=== PATIENT | male | born 1950 | race Caucasian/White ===

== ENCOUNTER → 2021-09-11 | Outpatient (CLI) | payer MEDICARE ==
[2021-09-11 15:23] LABS: HEMATOCRIT 40 % (40-54); HEMOGLOBIN 14.1 g/dL (13.3-17.7); MEAN CORPUSCULAR HEMOGLOBIN 28 pg (25-34); MEAN CORPUSCULAR HGB CONC 35 g/dL (32-36); MEAN CORPUSCULAR VOLUME 81 fL (80-99); MEAN PLATELET VOLUME 10.7 fL (9.0-12.2); PLATELET COUNT 207 10^3/uL (130-400); WHITE BLOOD COUNT 19.9 10^3/uL (4.3-11.0)
[2021-09-11 15:28] LABS: ALBUMIN 3.9 GM/DL (3.2-4.5)
[2021-09-11 15:30] LABS: CALCIUM 9.3 MG/DL (8.5-10.1)
[2021-09-11 15:31] LABS: TOTAL PROTEIN 7.4 GM/DL (6.4-8.2)
[2021-09-11 15:33] LABS: BILIRUBIN,TOTAL 2.1 MG/DL (0.1-1.0)
[2021-09-11 15:35] LABS: CREATININE SERUM 1.24 MG/DL (0.60-1.30)
--- NOTE | 2021-09-11 15:42 | Diagnostic Imaging Report ---
INDICATION: Right-sided abdominal pain. EXAMINATION: KUB at 3:23 PM. FINDINGS: The lung bases are clear. The bowel gas pattern is normal. There are no pathologic masses or calcifications. IMPRESSION: No acute abnormality is seen in the abdomen. Dictated by: Dictated on workstation # [id number]
== END ==
LOC: RAD 14:53
PROVIDERS: ATTEND Nurse Practitioner Family
DX: K59.00 Constipation, unspecified (principal); R11.2 Nausea with vomiting, unspecified
CPT/HCPCS: 36415; 74018; 80053; 83690; 85027; 86141

== ENCOUNTER → 2021-09-15 | Outpatient (CLI) | payer MEDICARE ==
--- NOTE | 2021-09-15 16:30 | Diagnostic Imaging Report ---
PROCEDURE: CT abdomen and pelvis without contrast. TECHNIQUE: Multiple contiguous axial images were obtained through the abdomen and pelvis without the use of intravenous contrast. Auto Exposure Controls were utilized during the CT exam to meet ALARA standards for radiation dose reduction. INDICATION: Right upper quadrant pain for 2 weeks. COMPARISON: No prior studies are available for comparison. The lung bases are clear. Liver is unremarkable. There appears to be significant inflammation surrounding the gallbladder. No definite gallstones are identified. There is no biliary ductal dilatation. The pancreas and spleen are unremarkable. No adrenal mass is detected. Right kidney is unremarkable. Left kidney contains a large cyst measuring approximately 10 cm. Aorta is heavily calcified. There is aneurysmal dilatation of the infrarenal abdominal aorta measuring 4.7 cm AP diameter. This terminates above the bifurcation. Bowel loops are nondilated. There is no obstruction. No free fluid or fluid collection is seen. There is a fat-containing umbilical hernia. Bladder and prostate are unremarkable. IMPRESSION: 1. There is significant inflammatory stranding surrounding the gallbladder suggestive of acute cholecystitis. Correlation with gallbladder ultrasound is recommended. 2. Left renal cysts. 3. Infrarenal abdominal aortic aneurysm. 4. Fat-containing umbilical hernia. Dictated by: Dictated on workstation # [id number]
== END ==
LOC: RAD 12:15
PROVIDERS: ATTEND Nurse Practitioner Family
DX: I71.4 Abdominal aortic aneurysm, without rupture (principal); N28.1 Cyst of kidney, acquired; K42.9 Umbilical hernia without obstruction or gangrene
CPT/HCPCS: 74176

== ENCOUNTER → 2021-10-07 | Outpatient (CLI) | payer MEDICARE ==
[~2021-10-07] VITALS: Ht 182.9 cm; Wt 111.0 kg
[~2021-10-07] MED LIST: ASPI81TA16 PO; CHOL10008 PO; CIPR500T5 PO; FLUO40CA12 PO; HYDR-3817 PO; L. R1CAP4 PO; LOPE2CAP14 PO; LORA-1025 PO; LOSA50TA63 PO; METR-145 PO
== END | disposition home or self-care (01) ==
LOC: PREOP 05:30
PROVIDERS: ATTEND Surgery
DX: Z01.818 Encounter for other preprocedural examination (principal)

== ENCOUNTER 2021-10-09 08:29 | Day surgery (SDC) | payer MEDICARE ==
[2021-10-09] VITALS (11 sets, daily range): BP systolic 100–134; BP diastolic 62–89
[~2021-10-09] VITALS: Ht 182.9 cm; Wt 111.0 kg
[~2021-10-09 08:29] MED LIST changes: -HYDR-3817 PO
[2021-10-09] MEDS: LACTATED RINGERS 1,000 ML IV PRN ×2 (08:55→11:09)
[2021-10-09] MEDS ORDERED: ceFAZolin 2 GM IV Premixed 50 ML IV ONE (09:00)
[2021-10-09] MEDS ORDERED: CLINDAMYCIN 600 MG/50 ML IVPB 50 ML IV ONE ×2 (09:07→10:15)
[2021-10-09] MEDS ORDERED: ONDANSETRON 4 MG/2 ML (SDV) Z0FRAN ONE ×2 (09:18→09:45)
--- NOTE | 2021-10-09 09:18 | Progress Note-Pre Operative ---
Pre-Operative Progress Note H&P Reviewed The H&P was reviewed, patient examined and no changes noted. Date Seen by Provider: October 09, 2021 Time Seen by Provider: 09:15 Date H&P Reviewed: October 09, 2021 Time H&P Reviewed: 09:10 Pre-Operative Diagnosis: Acute cholecystitis, Umbilical hernia HERNAN MANDEL APRN October 09, 2021 09:18
[2021-10-09] MEDS ORDERED: HYDR-3817 PO (09:19)
--- NOTE | 2021-10-09 09:20 | Discharge Inst-Surgical ---
D/C Lap Instructions-KIDO Reconcile Patient Problems Problems Reviewed?: Yes New, Converted, or Re-Newed RX: RX on Chart Follow Up Appt in 2 weeks Activity as tolerated No driving for 24 hours No driving while on pain medications Incentive Spirometry use every 2 hours while awake Regular Diet Symptoms to Report: Fever over 101 degree F, Nausea/Vomiting Infection Signs and Symptoms to report: Increased redness, Foul odor of wound, Increased drainage Bathing instructions: May shower Operative Area Clean/Dry; Keep incision clean/dry If any problems/questions: Contact your physician or go to Emergency Room HERNAN MANDEL APRN October 09, 2021 09:20
[2021-10-09] MEDS ORDERED: HYDROcodone/APAP 5 MG/325 MG (LORTAB) TAB PO ONE (09:30)
[2021-10-09] MEDS ORDERED: ACETAMINOPHEN 325 MG TABLET PO PRN (09:30)
[2021-10-09] MEDS ORDERED: ONDANSETRON 4 MG/2 ML (SDV) Z0FRAN IV ONE (09:30)
[2021-10-09] MEDS ORDERED: morphine INJ 10 MG/ML 1ML (SYR OR VIAL) IVP PRN (09:30)
[2021-10-09] MEDS ORDERED: ONDANSETRON 4 MG/2 ML (SDV) Z0FRAN IVP PRN ×2 (09:30→12:45)
[2021-10-09] MEDS ORDERED: fentaNYL INJ 100 MCG/2 ML AMP ONE (09:45)
[2021-10-09] MEDS ORDERED: proPOfol 200 MG/20 ML (DIPRIVAN) VIAL IV ONE (09:45)
[2021-10-09] MEDS ORDERED: SEVOFLURANE (ULTANE) 15 ML INHAL SOLN ONE ×2 (09:45→12:07)
[2021-10-09] MEDS ORDERED: LIDOCAINE PF 2% 5 ML (XYLOCAINE) VIAL ONE (09:45)
[2021-10-09] MEDS ORDERED: MIDAZOLAM 2 MG/2 ML (VERSED) VIAL ONE (09:46)
[2021-10-09] MEDS ORDERED: ROCURONIUM 50 MG/5 ML (ZEMURON) VIAL IV ONE (09:48)
[2021-10-09] MEDS ORDERED: LIDOCAINE/EPI 1%-1:200,000 (XYLOCAINE) 30 ML VIAL ONE (10:03)
[2021-10-09] MEDS ORDERED: PHENYLEPHRINE 100 MCG/ML 10 ML (ANESTHESIA) SYR ONE (10:56)
[2021-10-09] MEDS ORDERED: GLYCOPYRROLATE 0.2 MG/ML (ROBINUL) 2 ML VIAL ONE (12:02)
[2021-10-09] MEDS ORDERED: NEOSTIGMINE 3 MG/3 ML VIAL ONE (12:06)
[2021-10-09] MEDS ORDERED: KETOROLAC 30 MG/ML VIAL ONE (12:20)
--- NOTE | 2021-10-09 12:23 | Progress Note-Post Operative ---
Post-Operative Progess Note Surgeon (s)/Sweatband Flanger (s) Surgeon ROBERT GUARDADO MD Sweatband Flanger: maury jane SKI LIFT MECHANIC Pre-Operative Diagnosis Acute cholecystitis, Umbilical hernia Post-Operative Diagnosis same Procedure & Operative Findings Date of Procedure 10/09/21 Procedure Performed/Findings laparoscopic cholecystectomy. primary umbilical hernia repair. Anesthesia Type GET Estimated Blood Loss Estimated blood loss (mL): minimal Specimens/Packing Specimens Removed gallbladder ROBERT GUARDADO MD October 09, 2021 12:23
[2021-10-09] MEDS ORDERED: HYDROmorphone 2 MG/ML VIAL (DILAUDID) IV ONE (12:45)
[2021-10-09] MEDS ORDERED: HYDROcodone/APAP 5 MG/325 MG (LORTAB) TAB ONE (13:31)
--- NOTE | 2021-10-09 17:25 | OPERATIVE REPORT ---
DATE OF SERVICE: 10/09/2021 ATTENDING PRIMARY CARE PHYSICIAN: Emma Damon APRN. PREOPERATIVE DIAGNOSES: Acute calculous cholecystitis and reducible umbilical hernia. POSTOPERATIVE DIAGNOSES: Acute calculous cholecystitis and reducible umbilical hernia. PROCEDURES PERFORMED: Laparoscopic cholecystectomy and open primary umbilical hernia repair. SURGEON: Marina Guardado MD. PACK PULLER: Emiliano Guerrero APRN. ANESTHESIA: General endotracheal. ESTIMATED BLOOD LOSS: Minimal. FINDINGS: Inflamed gallbladder, gallstones, and small reducible umbilical hernia. DISPOSITION: The patient tolerated the procedure well. INDICATIONS FOR PROCEDURE: The patient is a 71-year-old male, who developed abdominal pain, nausea and vomiting as well as diarrhea and was initially treated for diverticulitis. He then underwent a CT scan and was found to have gallbladder wall inflammation as well as pericholecystic fluid consistent with an acute cholecystitis. He was found to be COVID positive; however, asymptomatic. He continued to be symptomatic; however, with significant diarrhea requiring IV fluids as well as a significant weight loss. A CT scan also did show an umbilical hernia. DESCRIPTION OF PROCEDURE: The patient was brought to the operating room and laid supine on the table. After adequate IV pain and sedative medications and general endotracheal intubation, the abdomen was prepped and draped in a standard surgical fashion. A 0.5% Marcaine with epinephrine was used to anesthetize the overlying skin at the left upper abdominal quadrant and a transverse skin incision was made using a 15 blade. A 0 silk suture was applied to the medial aspect incision for retraction and Veress needle inserted with a low opening pressure of 0 mmHg. The abdomen was then insufflated to 15 mmHg pressure. The Veress needle was removed and a 5 mm XL trocar placed followed by a 5 mm 45-degree angle laparoscope visualizing the peritoneal cavity. A four-quadrant abdominal exploration was performed. The gallbladder was not visualized and covered with omentum. Under direct visualization, there was also an umbilical hernia identified with preperitoneal fat within the hernia sac, which was reducible. Through the hernia sac, a 10 mm port was placed after the skin and peritoneal lining were anesthetized using 0.5% Marcaine with epinephrine and a transverse skin incision made using 15 blade. In a similar manner, a right upper abdominal quadrant 5 mm port was placed. The patient was then placed in a reverse Trendelenburg position as well as plane right side up, left side down. The fundus of the gallbladder was not identified and the omental adhesions were taken down using blunt dissection as well as electrocautery on hook instrument. The gallbladder was then retracted anteriorly and superiorly and the remainder of the omentum was taken down using blunt dissection as well as electrocautery on hook instrument with visualization of good hemostasis. The hepatoduodenal ligament was then bluntly dissected using a [place] dissector as well as the hook instrument. The entire critical view of safety was identified including the triangle of Calot as well as the cystic duct and artery as the only two structures going to the gallbladder as well as the cystic plate behind the proximal gallbladder. A timeout was then taken and the cystic duct and artery were then clipped proximally, distally and cut with EndoShears. The gallbladder was then dissected off the liver bed using cautery on hook instrument with visualization of good hemostasis as well as no leaking ducts of Luschka. Surgicel was placed on the liver bed as well. The gallbladder was removed through the 10 mm port site using an EndoCatch bag. The abdomen was desufflated and the skin incision was extended a few millimeters laterally and the hernia sac excised using electrocautery. The defect was only approximately 1.5 cm in size and was closed primarily in a transverse fashion using interrupted 0 Prolene sutures with visualization of good hemostasis. The subcutaneous tissue was then reapproximated using 3-0 Vicryl interrupted sutures. Skin was closed using 4-0 Monocryl running subcuticular suture. Wounds were then cleaned and covered with Dermabond. The tonsil sponges were then placed into the hernia site followed by 4 x 4 gauze followed by a large Op-Site followed by an abdominal binder. The patient tolerated the procedure well. We will start IV normal pain medication as well as a clear liquid diet. Once he is tolerating clears, has good pain control with oral pain medications, and ambulating well, we will discharge him home. He will be instructed to do no heavy lifting or exertion for the next two weeks. Job ID: [id number] DocumentID: [id number] Dictated Date: 10/09/2021 12:30:26 Resource Recovery Engineer Date: 10/09/2021 17:24:03 Dictated By: MARINA GUARDADO MD
== END 2021-10-09 14:35 ==
LOC: SDC 08:29
PROVIDERS: ATTEND Surgery
DX: K80.12 Calculus of gallbladder with acute and chronic cholecystitis without obstruction (principal); K42.9 Umbilical hernia without obstruction or gangrene; K66.0 Peritoneal adhesions (postprocedural) (postinfection); E66.9 Obesity, unspecified; Z68.33 Body mass index [BMI] 33.0-33.9, adult; Z99.89 Dependence on other enabling machines and devices; Z79.899 Other long term (current) drug therapy; Z87.891 Personal history of nicotine dependence
CPT/HCPCS: 87081; 88304

== ENCOUNTER 2021-12-31 14:27 | Emergency (ER) | payer MEDICARE ==
[~2021-12-31] VITALS: Ht 182 cm; Wt 113.0 kg
[~2021-12-31 14:27] MED LIST changes: +HYDR-3817 PO
[2021-12-31 15:05] VITALS: BP_SYST 103; BP_SYST 105; BP_SYST 139; BP_DIAS 69; BP_DIAS 71; BP_DIAS 91
[2021-12-31 15:23] LABS: BASOPHILS # (AUTO) 0.1 10^3/uL (0.0-0.1); BASOPHILS % (AUTO) 1 % (0-10); EOSINOPHILS # (AUTO) 0.3 10^3/uL (0.0-0.3); EOSINOPHILS % (AUTO) 3 % (0-10); HEMATOCRIT 42 % (40-54); HEMOGLOBIN 15.1 g/dL (13.3-17.7); LYMPHOCYTES # (AUTO) 2.6 10^3/uL (1.0-4.0); LYMPHOCYTES % (AUTO) 26 % (12-44); MEAN CORPUSCULAR HEMOGLOBIN 29 pg (25-34); MEAN CORPUSCULAR HGB CONC 36 g/dL (32-36); MEAN CORPUSCULAR VOLUME 80 fL (80-99); MEAN PLATELET VOLUME 10.3 fL (9.0-12.2); MONOCYTES # (AUTO) 0.6 10^3/uL (0.0-1.0); MONOCYTES % (AUTO) 6 % (0-12); NEUTROPHILS # (AUTO) 6.3 10^3/uL (1.8-7.8); NEUTROPHILS % (AUTO) 64 % (42-75); PLATELET COUNT 208 10^3/uL (130-400); WHITE BLOOD COUNT 9.8 10^3/uL (4.3-11.0)
[2021-12-31 15:27] LABS: ALBUMIN 4.3 GM/DL (3.2-4.5); CHLORIDE 103 MMOL/L (98-107); POTASSIUM 4.1 MMOL/L (3.6-5.0); SODIUM 137 MMOL/L (135-145)
[2021-12-31 15:28] LABS: CALCIUM 9.6 MG/DL (8.5-10.1)
[2021-12-31 15:29] LABS: GLUCOSE 96 MG/DL (70-105); TOTAL PROTEIN 7.4 GM/DL (6.4-8.2)
[2021-12-31 15:30] LABS: CARBON DIOXIDE 27 MMOL/L (21-32)
[2021-12-31] MEDS ORDERED: NS IV 500 ML 500 ML IV ONE (15:30)
[2021-12-31 15:31] LABS: BILIRUBIN,TOTAL 0.9 MG/DL (0.1-1.0)
[2021-12-31 15:33] LABS: ALKALINE PHOSPHATASE 81 U/L (40-136); CREATININE SERUM 1.21 MG/DL (0.60-1.30); GFR ESTIMATED 64
[2021-12-31 15:34] LABS: BUN/CREATININE RATIO 17
[2021-12-31 15:36] LABS: ALANINE AMINOTRANSFERASE 32 U/L (0-55)
--- NOTE | 2021-12-31 16:18 | ED Syncope ---
General Chief Complaint: Dizziness/Syncope Stated Complaint: PASSED OUT Nursing Triage Note: PT TO ED POV FOR DIZZINESS THAT HE NOTICED ABOUT FOUR MONTHS AGO. PER PT HE WAS OUTSIDE GETTING SOME SUN, "WALKED INTO THE GARAGE GOT MYSELF SOME WATER THEN I DON'T REMEMBER WHAT HAPPENED". "I KNEW I PASSED OUT, I FELT THE SHELF ON MY BACK". PT DENIES HEAD INJURY. PT AMB. TO ROOM 10 WITHOUT DIFFICULTY. Source of Information: Patient Exam Limitations: No Limitations History of Present Illness Date Seen by Provider: Dec 31, 2021 Time Seen by Provider: 14:49 Initial Comments Patient to the ER by private conveyance with chief complaint that he has been dealing with dizziness for least 4 months but today been working out side and went into the garage get some water and passed out falling with his back against a shelf in the garage. He is in the gives out very long his saw him. He denies striking his head or having any pain. He denies any shortness of air fevers or chills. He takes losartan for blood pressure but only takes it inconsistently. No history of fevers chills cough shortness of air nausea vomiting diarrhea. Allergies and Home Medications Allergies Coded Allergies: Penicillins (Unverified Allergy, Mild, 03/19/09) Patient Home Medication List Home Medication List Reviewed: Yes Aspirin (Low Dose Aspirin EC) 81 Mg Tablet.dr, 81 MG PO DAILY, (Reported) Entered as Reported by: ADALID DANG on 10/07/21952 Cholecalciferol (Vitamin D3) (Vitamin D3) 25 Mcg (1000 Unit) Tab.chew, 25 MCG PO UD, (Reported) Entered as Reported by: ADALID DANG on 10/07/21952 Ciprofloxacin HCl (Ciprofloxacin HCl) 500 Mg Tablet, 500 MG PO BID, (Reported) Entered as Reported by: ADALID DANG on 10/07/21952 Fluoxetine HCl (Prozac) 40 Mg Capsule, 40 MG PO DAILY, (Reported) Entered as Reported by: ADALID DANG on 10/07/21952 Hydrocodone/Acetaminophen (Hydrocodone-Acetamin 7.5-325) 7.5 Mg-325 Mg Tablet, 1 EACH PO Q4H PRN for PAIN-BREAKTHROUGH Prescribed by: HERNAN MANDEL on 10/09/21 09 L. Rhamnosus GG/Inulin (Culturelle Probiotics Capsule) 10 Billion Cell-200 Mg Ca psule, 1 EACH PO DAILY, (Reported) Entered as Reported by: ADALID DANG on 10/07/21952 Loperamide HCl (Anti-Diarrheal) 2 Mg Capsule, 2 MG PO UD, (Reported) Entered as Reported by: ADALID DANG on 10/07/21952 Loratadine (Allergy Relief) 10 Mg Tablet, 10 MG PO DAILY, (Reported) Entered as Reported by: ADALID DANG on 10/07/21952 Losartan Potassium (Losartan Potassium) 50 Mg Tablet, 25 MG PO DAILY, (Reported) Entered as Reported by: ADALID DANG on 10/07/21952 Metronidazole (Metronidazole) 500 Mg Tablet, 500 MG PO BID, (Reported) Entered as Reported by: ADALID DANG on 10/07/21952 Review of Systems Constitutional: No chills, No diaphoresis EENTM: No ear discharge, No ear pain Respiratory: No cough, No short of breath Cardiovascular: No chest pain, No edema Gastrointestinal: No abdominal pain, No nausea, No vomiting Genitourinary: No discharge, No dysuria Musculoskeletal: No back pain, No joint pain All Other Systems Reviewed Negative Unless Noted: Yes Past Qtfbjsq-Sshtdv-Dxuaks Hx Patient Social History Tobacco Use?: No Smoking Status: Former Smoker Substance use?: No Alcohol Use?: No Pt feels they are or have been: No Immunizations Up To Date First/Initial COVID19 Vaccinat: 2020 Second COVID19 Vaccination Jc: 2020 Third COVID19 Vaccination Date: 2020 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 SURGERIES;09/2021 GALLBLADDER AND HERNIA. OPEN HEART 09/2018. [employer] H[facility]IA REPAIR. CABG, Orthopedic Respiratory: No Currently Using CPAP: Yes Currently Using BIPAP: No Cardiac: Yes Coronary Artery Disease, High Cholesterol, Hypotension Neurological: No Reproductive Disorders: No Sexually Transmitted Disease: No Genitourinary: No Gastrointestinal: Yes Chronic Diarrhea, Gall Bladder Disease Musculoskeletal: Yes (PLATE IN NECK FROM INJURY A YOUTH) Endocrine: No HEENT: Yes (GLASSES) Cancer: Yes Skin, Melanoma What Type of Treatment Did You: Surgical Intervention Psychosocial: Yes Depression Integumentary: Yes (SKIN CANCER REMOVED ON BACK) Blood Disorders: No Adverse Reaction/Blood Tranf: No Physical Exam Vital Signs Vital Signs - First Documented 12/31/21 12/31/21 15:05 15:10 Temp 36.0 Pulse 77 90 93 Resp 18 B/P (MAP) 139/91 (107) 105/69 (81) 103/71 (82) Pulse Ox 96 O2 Delivery Room Air Capillary Refill : Less Than 3 Seconds Height, Weight, BMI Height: '" Weight: lbs. oz. kg; 34.00 BMI Method: General Appearance: No Apparent Distress, WD/WN HEENT: PERRL/EOMI, TMs Normal, Normal ENT Inspection, Pharynx Normal; No Moist Mucous Membranes (dry) Neck: Full Range of Motion, Normal Inspection, Non Tender Cardiovascular: Regular Rate, Rhythm, No Edema, Normal Peripheral Pulses Respiratory: Chest Non Tender, Lungs Clear, Normal Breath Sounds, No Accessory Muscle Use, No Respiratory Distress Gastrointestinal: Normal Bowel Sounds, Non Tender, Soft Extremities: Normal Capillary Refill, Normal Inspection, Non Tender, No Pedal Edema Neurologic/Psychiatric: Alert, Oriented x3 Cranial Nerves: Normal Hearing, Normal Speech, PERRL Coordination/Gait: Normal Gait Skin: Normal Color, Warm/Dry Progress/Results/Core Measures Results/Orders Lab Results Laboratory Tests Test 12/31/21 14:50 12/31/21 14:52 12/31/21 15:02 12/31/21 16:56 Range/Units White Blood Count 9.8 4.3-11.0 10^3/uL Red Blood Count 5.20 4.30-5.52 10^6/uL Hemoglobin 15.1 13.3-17.7 g/dL Hematocrit 42 40-54 % Mean Corpuscular Volume 80 80-99 fL Mean Corpuscular Hemoglobin 29 25-34 pg Mean Corpuscular Hemoglobin Concent 36 32-36 g/dL Red Cell Distribution Width 13.4 10.0-14.5 % Platelet Count 208 130-400 10^3/uL Mean Platelet Volume 10.3 9.0-12.2 fL Immature Granulocyte % (Auto) 0 % Neutrophils (%) (Auto) 64 42-75 % Lymphocytes (%) (Auto) 26 12-44 % Monocytes (%) (Auto) 6 0-12 % Eosinophils (%) (Auto) 3 0-10 % Basophils (%) (Auto) 1 0-10 % Neutrophils # (Auto) 6.3 1.8-7.8 10^3/uL Lymphocytes # (Auto) 2.6 1.0-4.0 10^3/uL Monocytes # (Auto) 0.6 0.0-1.0 10^3/uL Eosinophils # (Auto) 0.3 0.0-0.3 10^3/uL Basophils # (Auto) 0.1 0.0-0.1 10^3/uL Immature Granulocyte # (Auto) 0.0 0.0-0.1 10^3/uL Sodium Level 137 135-145 MMOL/L Potassium Level 4.1 3.6-5.0 MMOL/L Chloride Level 103 98-107 MMOL/L Carbon Dioxide Level 27 21-32 MMOL/L Anion Gap 7 5-14 MMOL/L Blood Urea Nitrogen 21 H 7-18 MG/DL Creatinine 1.21 0.60-1.30 MG/DL Estimat Glomerular Filtration Rate 64 BUN/Creatinine Ratio 17 Glucose Level 96 70-105 MG/DL Calcium Level 9.6 8.5-10.1 MG/DL Corrected Calcium 9.4 8.5-10.1 MG/DL Total Bilirubin 0.9 0.1-1.0 MG/DL Aspartate Amino Transf (AST/SGOT) 22 5-34 U/L Alanine Aminotransferase (ALT/SGPT) 32 0-55 U/L Alkaline Phosphatase 81 40-136 U/L Troponin I < 0.028 <0.028 NG/ML C-Reactive Protein High Sensitivity 0.32 0.00-0.50 MG/DL B-Type Natriuretic Peptide 71.3 <100.0 PG/ML Total Protein 7.4 6.4-8.2 GM/DL Albumin 4.3 3.2-4.5 GM/DL SARS-CoV-2 RNA (RT-PCR) Not Detected Not Detecte Glucometer 94 70-110 MG/DL Urine Color YELLOW Urine Clarity CLEAR Urine pH 6.0 5-9 Urine Specific [place] 1.015 L 1.016-1.022 Urine Protein NEGATIVE NEGATIVE Urine Glucose (UA) NEGATIVE NEGATIVE Urine Ketones NEGATIVE NEGATIVE Urine Nitrite NEGATIVE NEGATIVE Urine Bilirubin NEGATIVE NEGATIVE Urine Urobilinogen 0.2 < = 1.0 MG/DL Urine Leukocyte Esterase NEGATIVE NEGATIVE Urine RBC (Auto) NEGATIVE NEGATIVE Urine RBC NONE /HPF Urine WBC NONE /HPF Urine Squamous Epithelial Cells NONE /HPF Urine Crystals NONE /LPF Urine Bacteria NEGATIVE /HPF Urine Casts NONE /LPF Urine Mucus NEGATIVE /LPF Urine Culture Indicated NO My Orders Orders - TROY SALINAS Continuous Ekg Monitoring (12/31/21 14:44) Ekg Tracing (12/31/21 14:44) Orthostatic Vital Signs (Adult (12/31/21 14:44) Cbc With Automated Diff (12/31/21 14:44) Comprehensive Metabolic Panel (12/31/21 14:44) Hs C Reactive Protein (12/31/21 14:44) Troponin I Lorenza (12/31/21 14:44) Bnp Lorenza (12/31/21 14:44) Covid 19 Inhouse Test (12/31/21 14:44) Accucheck Stat ONCE (12/31/21 15:15) Ua Culture If Indicated (12/31/21 15:18) Ed Iv/Invasive Line Start (12/31/21 15:26) Ns Iv 500 Ml (Sodium Chloride 0.9%) (12/31/21 15:30) Ed Iv/Invasive Line Start (12/31/21 16:18) Lactated Ringers (Lr 1000 Ml Iv Solution (12/31/21 16:30) Medications Given in ED Current Medications Medications Dose Ordered Sig/Jaime Route Start Time Stop Time Status Last Admin Dose Admin Lactated Ringer's 1,000 ml @ 0 mls/hr Q0M ONCE IV 12/31/21 16:30 12/31/21 16:31 DC 12/31/21 17:06 1,000 MLS/HR Sodium Chloride 500 ml @ 0 mls/hr Q0M ONCE IV 12/31/21 15:30 12/31/21 15:31 DC 12/31/21 15:31 500 MLS/HR Vital Signs/I&O 12/31/21 12/31/21 15:05 15:10 Temp 36.0 Pulse 77 88 90 93 Resp 18 B/P (MAP) 139/91 (107) 117/89 (98) 105/69 (81) 103/71 (82) Pulse Ox 96 O2 Delivery Room Air Blood Pressure Mean: 98 FSBG Bedside Testing Finger Stick Blood Glucose: 94 Blood Glucose Action Taken: PROVIDER NOTIFIED. Progress Progress Note #1: Time: 16:16 Progress Note Significant orthostasis. His pressure dropped 36 mmHg on standing. Plan to give him 1500 cc of fluid and reevaluate after checking some labs and EKG. he is not on a blood thinner and denies striking his head so we discussed observation versus imaging. Progress Note #2: Time: 17:09 Progress Note 1500 cc been ordered. Patient starting to feel better. We will let him go home after his fluids are done if he can get up and walk around without being dizzy. He is already got up and gone to the bathroom and did not feel dizzy. Initial ECG Impression Date: Dec 31, 2021 Initial ECG Impression Time: 15:05 Initial ECG Rate: 76 Initial ECG Rhythm: Normal Sinus Initial ECG Intervals: Normal Initial ECG Impression: Normal Comment Normal sinus rhythm with no clinically relevant ST elevation or depression. Departure Impression Primary Impression: Syncope Qualified Codes: R55 - Syncope and collapse Additional Impressions: Orthostatic hypotension Dehydration Disposition: 01 HOME, SELF-CARE Condition: Improved Departure-Patient Inst. Decision time for Depature: 17:16 Referrals: NO,LOCAL PHYSICIAN (PCP/Family) Primary Care Physician Patient Instructions: Syncope (Fainting) (DC), Orthostatic Hypotension, Dehydration, Adult (DC) Add. Discharge Instructions: Drink plenty of fluids in the upcoming week or so. Sports drinks such as Gatorade or Powerade are acceptable. Follow-up with your primary care doctor in 1 to 2 weeks to make sure that things are improving and to discuss your medications and how they may affect this co ndition. If you check your blood pressure and it is on the low side below 100 systolic then you may consider holding your blood pressure medicine that day. If you are sick, dehydrated or not feeling well then that is a good time to skip your blood pressure medicine that day. All discharge instructions reviewed with patient and/or family. Voiced understanding. TROY SALINAS Dec 31, 2021 16:18
[2021-12-31] MEDS ORDERED: LACTATED RINGERS 1,000 ML IV ONE (16:30)
[2021-12-31 17:01] LABS: BILIRUBIN,URINE NEGATIVE (NEGATIVE); CLARITY,URINE CLEAR; COLOR,URINE YELLOW; GLUCOSE, URINE (UA) NEGATIVE (NEGATIVE); KETONES,URINE NEGATIVE (NEGATIVE); LEUKOCYTE ESTERASE ,URINE NEGATIVE (NEGATIVE); NITRITE,URINE NEGATIVE (NEGATIVE); PROTEIN,URINE NEGATIVE (NEGATIVE)
[2021-12-31 17:15] LABS: BACTERIA,URINE NEGATIVE /HPF
[2021-12-31 17:47] VITALS: BP 140/94
== END 2021-12-31 17:47 | disposition home or self-care (01) ==
LOC: EDUNIT# 14:27 → ER 14:29
DX: I95.1 Orthostatic hypotension (principal); E86.0 Dehydration; Z87.891 Personal history of nicotine dependence; Z20.822 Contact with and (suspected) exposure to COVID-19
CPT/HCPCS: 36415; 80053; 81000; 82947; 83880; 84484; 85025; 86141; 87636; 93005

== ENCOUNTER 2022-05-18 15:43 | Emergency (ER) | payer MEDICARE ==
[~2022-05-18] VITALS: Ht 182.8 cm; Wt 113.4 kg
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
[2022-05-18 16:12] LABS: BASOPHILS # (AUTO) 0.1 10^3/uL (0.0-0.1); BASOPHILS % (AUTO) 1 % (0-10); EOSINOPHILS # (AUTO) 0.3 10^3/uL (0.0-0.3); EOSINOPHILS % (AUTO) 3 % (0-10); HEMATOCRIT 43 % (40-54); HEMOGLOBIN 15.4 g/dL (13.3-17.7); LYMPHOCYTES # (AUTO) 2.9 10^3/uL (1.0-4.0); LYMPHOCYTES % (AUTO) 28 % (12-44); MEAN CORPUSCULAR HEMOGLOBIN 29 pg (25-34); MEAN CORPUSCULAR HGB CONC 36 g/dL (32-36); MEAN CORPUSCULAR VOLUME 80 fL (80-99); MEAN PLATELET VOLUME 10.2 fL (9.0-12.2); MONOCYTES # (AUTO) 0.5 10^3/uL (0.0-1.0); MONOCYTES % (AUTO) 5 % (0-12); NEUTROPHILS # (AUTO) 6.5 10^3/uL (1.8-7.8); NEUTROPHILS % (AUTO) 64 % (42-75); PLATELET COUNT 214 10^3/uL (130-400); WHITE BLOOD COUNT 10.3 10^3/uL (4.3-11.0)
--- NOTE | 2022-05-18 16:39 | Diagnostic Imaging Report ---
PROCEDURE: CT head and CT cervical spine without contrast. TECHNIQUE: Multiple contiguous axial images were obtained through the brain and cervical spine without the use of intravenous contrast. Sagittal and coronal reformations through the cervical spine were then performed. Auto Exposure Controls were utilized during the CT exam to meet ALARA standards for radiation dose reduction. INDICATION: Trauma. Fall. Syncope. Left-sided head injury. COMPARISON: None. FINDINGS: CT HEAD: No intracranial hemorrhage, mass effect, hydrocephalus, or extra-axial fluid collections. No CT evidence of acute territorial infarction. 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 No acute osseous findings. Paranasal sinuses and mastoids are clear. CT CERVICAL SPINE: Normal alignment. Vertebral body heights are preserved. No fractures. Mature anterior fusion with interbody grafting at C6-C7. No evidence of hardware failure. Advanced degenerative endplate changes at C4-C6. Moderate atherosclerotic calcifications in the carotid bifurcations. Lung apices are clear. IMPRESSION: 1. No acute intracranial or cervical spine CT findings. 2. 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 3. Anterior fusion with interbody bone grafting at C6-C7. Moderate spondylotic changes are greatest at C4-C6. Dictated by: Dictated on workstation # [id number]
[2022-05-18 17:08] LABS: ALANINE AMINOTRANSFERASE 39 U/L (0-55); ALBUMIN 4.2 GM/DL (3.2-4.5); ALKALINE PHOSPHATASE 80 U/L (40-136); BILIRUBIN,TOTAL 0.8 MG/DL (0.1-1.0); BUN/CREATININE RATIO 15; CALCIUM 9.2 MG/DL (8.5-10.1); CARBON DIOXIDE 26 MMOL/L (21-32); CHLORIDE 106 MMOL/L (98-107); CREATININE SERUM 1.59 MG/DL (0.60-1.30); GFR ESTIMATED 46; GLUCOSE 159 MG/DL (70-105); POTASSIUM 3.9 MMOL/L (3.6-5.0); SODIUM 139 MMOL/L (135-145); TOTAL PROTEIN 7.5 GM/DL (6.4-8.2)
[2022-05-18 18:37] VITALS: BP 134/97
== END 2022-05-18 18:37 | disposition home or self-care (01) ==
LOC: EDUNIT# 15:43 → ER 15:44
DX: S00.03XA Contusion of scalp, initial encounter (principal); R55 Syncope and collapse; R42 Dizziness and giddiness; H93.19 Tinnitus, unspecified ear; W18.30XA Fall on same level, unspecified, initial encounter
CPT/HCPCS: 36415; 70450; 72125; 80053; 84484; 85025; 93005

== ENCOUNTER → 2022-06-11 | Outpatient (CLI) | payer MEDICARE ==
--- NOTE | 2022-06-11 16:12 | Diagnostic Imaging Report ---
INDICATION: Right hip pain. TIME OF EXAM: 2:27 PM. Single view of the pelvis demonstrates normal femoral acetabular alignment, bilaterally. Hip joint spaces are fairly well maintained. Femoral heads and necks are intact. Rami are intact. No fractures are seen. IMPRESSION: No acute bony abnormality is detected. Dictated by: Dictated on workstation # [id number]
--- NOTE | 2022-06-11 16:14 | Diagnostic Imaging Report ---
INDICATION: Right hip pain radiating to the right groin. TIME OF EXAM: 2:28 PM. EXAMINATION: Three views of the lumbar spine were obtained. FINDINGS: Curvature and alignment is normal. Vertebral body heights are well-maintained. No acute compression fracture is seen. There is multilevel degenerative disc disease with variable disc space narrowing and marginal spurring. This is greatest at L2-L3, L4-L5 and L5-S1 levels. There are atherosclerotic calcifications in the abdominal aorta. IMPRESSION: Lumbar spondylosis. No acute bony abnormality is detected. Dictated by: Dictated on workstation # [id number]
== END ==
LOC: RAD 14:02
PROVIDERS: ATTEND Nurse Practitioner Family
DX: M47.896 Other spondylosis, lumbar region (principal)
CPT/HCPCS: 72100; 72170

== ENCOUNTER 2022-06-16 11:49 | Emergency (ER) | payer MEDICARE ==
[~2022-06-16] VITALS: Ht 182.8 cm; Wt 113.4 kg
--- NOTE | 2022-06-16 12:49 | ED Neurological Problem ---
General Chief Complaint: General Problems/Pain Stated Complaint: FAINTING SPELLS | Nursing Triage Note: PT AMB TO [facility] 5 WITH WITH C/O FAINTING SPELL AT HOME AROUND 0900. 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 PT STATES THE DIZZINESS COMES ON QUICK AND GOES AWAY ONCE HE WAKES UP. PT STATES THIS IS THE THIRD TIME HE HAS FAINTED IN THE LAST MONTH Source: patient, family Exam Limitations: no limitations History of Present Illness Date Seen by Provider: Jun 16, 2022 Time Seen by Provider: 11:59 Initial Comments 71-year-old male patient presents with for concerns of fainting spells. Most recent episode was this morning. He states he was a kitchen when his visio n suddenly went black and he passed out hitting the back of his head on the warp scouring vat tender. Unsure of what triggered this episode. States this was unwitnessed, thinks he was not out for long, states he has no amnesia of the event. reports that he has had 3 of these episodes in the last month. States the other 2 episodes occurred after drinking cold water while standing. Reports he has had other episodes of near syncope, some of which occurred while drinking water. States he has had approximately 1 episode every month since he was diagnosed with cholecystitis in July 2021, cholecystectomy completed in September 2021. also states that he is been "less responsive, zoning out" since July of 2021 when he had cholecystitis. He was told that he had a previous stroke that he was unaware of that was found on a CT head scan completed last month. One example of him zoning out was yesterday when he was making the bed with his , states he was holding the sheet up in the air and seemed to be unsure what to do with it. He remembers the episode, but states he does not remember if he was feeling lightheaded or confused. said it appeared like he was confused/"zoning out." Another example of confusion was when she was sitting drinking coffee and unexpectedly tilt the cup towards himself, thought maybe he was about to pass out and tried to grab the coffee cup from him, he told her he would put on the counter, and did not seem to understand that his had control of the cup. States he had open heart surgery at the end of 2018, he has also had a carotid Doppler many years ago. He currently takes losartan, aspirin 81 mg, pantoprazole, metformin, Prozac, vitamin D, and an allergy pill. Denies headache, chest pain, shortness of air, abdominal pain, n/v/d/c. Allergies and Home Medications Allergies Coded Allergies: Penicillins (Unverified Allergy, Mild, 03/19/09) hydrocodone (Verified Allergy, Unknown, 06/16/22) DISORIENTED Patient Home Medication List Home Medication List Reviewed: Yes Aspirin (Low Dose Aspirin EC) 81 Mg Tablet.dr, 81 MG PO DAILY, (Reported) Entered as Reported by: ADALID DANG on 10/07/21952 Cholecalciferol (Vitamin D3) (Vitamin D3) 25 Mcg (1000 Unit) Tab.chew, 25 MCG PO UD, (Reported) Entered as Reported by: ADALID DANG on 10/07/21952 Ciprofloxacin HCl (Ciprofloxacin HCl) 500 Mg Tablet, 500 MG PO BID, (Reported) Entered as Reported by: ADALID DANG on 10/07/21952 Fluoxetine HCl (Prozac) 40 Mg Capsule, 40 MG PO DAILY, (Reported) Entered as Reported by: ADALID DANG on 10/07/21952 Hydrocodone/Acetaminophen (Hydrocodone-Acetamin 7.5-325) 7.5 Mg-325 Mg Tablet, 1 EACH PO Q4H PRN for PAIN-BREAKTHROUGH Prescribed by: HERNAN MANDEL on 10/09/21918 L. Rhamnosus GG/Inulin (Culturelle Probiotics Capsule) 10 Billion Cell-200 Mg Capsule, 1 EACH PO DAILY, (Reported) Entered as Reported by: ADALID DANG on 10/07/21952 Loperamide HCl (Anti-Diarrheal) 2 Mg Capsule, 2 MG PO UD, (Reported) Entered as Reported by: ADALID DANG on 10/07/21952 Loratadine (Allergy Relief) 10 Mg Tablet, 10 MG PO DAILY, (Reported) Entered as Reported by: ADALID DANG on 10/07/21952 Losartan Potassium (Losartan Potassium) 50 Mg Tablet, 25 MG PO DAILY, (Reported) Entered as Reported by: ADALID DANG on 10/07/21952 Metronidazole (Metronidazole) 500 Mg Tablet, 500 MG PO BID, (Reported) Entered as Reported by: ADALID DANG on 10/07/21 0953 Review of Systems Review of Systems Constitutional: see HPI Past Vmjpqxc-Oxagbz-Zqrkal Hx Patient Social History Tobacco Use?: No Smoking Status: Former Smoker Substance use?: No Alcohol Use?: No Pt feels they are or have been: No Immunizations Up To Date Influenza Vaccine Up-to-Date: No; Not Current First/Initial COVID19 Vaccinat: 2020 Second COVID19 Vaccination Jc: 2020 Third COVID19 Vaccination Date: 2020 Seasonal Allergies Seasonal Allergies: Yes Past Medical History Surgery/Hospitalization HX: PMH;DM2 AND HYPERTENSION. SURGERIES;09/2021 GALLBLADDER AND HERNIA. OPEN HEART 09/2018. [employer] H[facility]IA REPAIR. CABG, Orthopedic Respiratory: No Currently Using CPAP: Yes Currently Using BIPAP: No Cardiac: Yes Coronary Artery Disease, High Cholesterol, Hypotension Neurological: No Reproductive Disorders: No Sexually Transmitted Disease: No Genitourinary: No Gastrointestinal: Yes Chronic Diarrhea, Gall Bladder Disease Musculoskeletal: Yes (PLATE IN NECK FROM INJURY A YOUTH) Endocrine: No HEENT: Yes (GLASSES) Cancer: Yes Skin, Melanoma What Type of Treatment Did You: Surgical Intervention Psychosocial: Yes Depression Integumentary: Yes (SKIN CANCER REMOVED ON BACK) Blood Disorders: No Adverse Reaction/Blood Tranf: No Physical Exam Vital Signs Vital Signs - First Documented 06/16/22 11:58 Temp 36.1 Pulse 96 Resp 16 B/P (MAP) 142/103 (116) Capillary Refill : Height, Weight, BMI Height: '" Weight: lbs. oz. 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, no motor/sensory deficits, alert, normal mood/affect, oriented x 3 Crainal Nerves: normal hearing, normal speech, PERRL Skin: normal color, warm/dry Progress/Results/Core Measures Results/Orders Lab Results Laboratory Tests Test 06/16/22 12:49 06/16/22 12:55 Range/Units White Blood Count 11.0 4.3-11.0 10^3/uL Red Blood Count 5.60 H 4.30-5.52 10^6/uL Hemoglobin 16.1 13.3-17.7 g/dL Hematocrit 45 40-54 % Mean Corpuscular Volume 81 80-99 fL Mean Corpuscular Hemoglobin 29 25-34 pg Mean Corpuscular Hemoglobin Concent 36 32-36 g/dL Red Cell Distribution Width 13.4 10.0-14.5 % Platelet Count 182 130-400 10^3/uL Mean Platelet Volume 10.2 9.0-12.2 fL Immature Granulocyte % (Auto) 0 % Neutrophils (%) (Auto) 72 42-75 % Lymphocytes (%) (Auto) 21 12-44 % Monocytes (%) (Auto) 5 0-12 % Eosinophils (%) (Auto) 2 0-10 % Basophils (%) (Auto) 1 0-10 % Neutrophils # (Auto) 7.9 H 1.8-7.8 10^3/uL Lymphocytes # (Auto) 2.3 1.0-4.0 10^3/uL Monocytes # (Auto) 0.6 0.0-1.0 10^3/uL Eosinophils # (Auto) 0.2 0.0-0.3 10^3/uL Basophils # (Auto) 0.1 0.0-0.1 10^3/uL Immature Granulocyte # (Auto) 0.0 0.0-0.1 10^3/uL Prothrombin Time 13.2 12.2-14.7 SEC INR Comment 1.0 0.8-1.4 Activated Partial Thromboplast Time 31 24-35 SEC Sodium Level 138 135-145 MMOL/L Potassium Level 4.4 3.6-5.0 MMOL/L Chloride Level 104 98-107 MMOL/L Carbon Dioxide Level 23 21-32 MMOL/L Anion Gap 11 5-14 MMOL/L Blood Urea Nitrogen 24 H 7-18 MG/DL Creatinine 1.35 H 0.60-1.30 MG/DL Estimat Glomerular Filtration Rate 56 BUN/Creatinine Ratio 18 Glucose Level 116 H 70-105 MG/DL Calcium Level 9.7 8.5-10.1 MG/DL Corrected Calcium 9.4 8.5-10.1 MG/DL Magnesium Level 2.1 1.6-2.4 MG/DL Total Bilirubin 0.9 0.1-1.0 MG/DL Aspartate Amino Transf (AST/SGOT) 28 5-34 U/L Alanine Aminotransferase (ALT/SGPT) 52 0-55 U/L Alkaline Phosphatase 90 40-136 U/L Total Creatine Kinase 93 30-200 U/L Creatine Kinase MB 3.1 <6.6 NG/ML Myoglobin 86.3 10.0-92.0 NG/ML Troponin I < 0.028 <0.028 NG/ML B-Type Natriuretic Peptide 49.2 <100.0 PG/ML Total Protein 7.6 6.4-8.2 GM/DL Albumin 4.4 3.2-4.5 GM/DL Triglycerides Level 139 <150 MG/DL Cholesterol Level 234 H < 200 MG/DL LDL Cholesterol Direct 163 H 1-129 MG/DL VLDL Cholesterol 28 5-40 MG/DL HDL Cholesterol 52 40-60 MG/DL Urine Color YELLOW Urine Clarity CLEAR Urine pH 5.5 5-9 Urine Specific [place] 1.025 H 1.016-1.022 Urine Protein NEGATIVE NEGATIVE Urine Glucose (UA) NEGATIVE NEGATIVE Urine Ketones NEGATIVE NEGATIVE Urine Nitrite NEGATIVE NEGATIVE Urine Bilirubin NEGATIVE NEGATIVE Urine Urobilinogen 0.2 < = 1.0 MG/DL Urine Leukocyte Esterase NEGATIVE NEGATIVE Urine RBC (Auto) NEGATIVE NEGATIVE Urine RBC NONE /HPF Urine WBC RARE /HPF Urine Squamous Epithelial Cells RARE /HPF Urine Crystals NONE /LPF Urine Bacteria NEGATIVE /HPF Urine Casts NONE /LPF Urine Mucus SMALL H /LPF Urine Culture Indicated NO Urine Opiates Screen NEGATIVE NEGATIVE Urine Oxycodone Screen NEGATIVE NEGATIVE Urine Methadone Screen NEGATIVE NEGATIVE Urine Propoxyphene Screen NEGATIVE NEGATIVE Urine Barbiturates Screen NEGATIVE NEGATIVE Ur Tricyclic Antidepressants Screen NEGATIVE NEGATIVE Urine Phencyclidine Screen NEGATIVE NEGATIVE Urine Amphetamines Screen NEGATIVE NEGATIVE Urine Methamphetamines Screen NEGATIVE NEGATIVE Urine Benzodiazepines Screen NEGATIVE NEGATIVE Urine Cocaine Screen NEGATIVE NEGATIVE Urine Cannabinoids Screen NEGATIVE NEGATIVE My Orders Orders - ALLIE MONTOYA APRN Ekg Tracing (06/16/22 11:58) Cbc With Automated Diff (06/16/22 12:36) Magnesium (06/16/22 12:36) Chest 1 View, Ap/Pa Only (06/16/22 12:36) Comprehensive Metabolic Panel (06/16/22 12:36) Myoglobin Serum (06/16/22 12:36) Protime With Inr (06/16/22 12:36) Partial Thromboplastin Time (06/16/22 12:36) O2 (06/16/22 12:36) Monitor-Rhythm Ecg Trace Only (06/16/22 12:36) Ed Iv/Invasive Line Start (06/16/22 12:36) Creatine Kinase (06/16/22 12:36) Creatine Kinase Mb (06/16/22 12:36) Bnp Lorenza (06/16/22 12:36) Troponin I Lorenza (06/16/22 12:36) Ct Head/Cervical Spine Wo (06/16/22 12:36) Ua Culture If Indicated (06/16/22 12:36) Drug Screen Stat (Urine) (06/16/22 12:36) Lipid Panel (06/16/22 12:41) Aorta Sono [id number] (06/16/22 12:51) Orthostatic Vital Signs (Adult (06/16/22 13:19) Echo Limited (06/16/22 13:54) Vital Signs/I&O 06/16/22 06/16/22 06/16/22 11:58 13:47 17:00 Temp 36.1 36.1 Pulse 96 90 92 96 106 Resp 16 16 B/P (MAP) 142/103 (116) 129/85 (100) 139/90 130/79 (96) 108/73 (85) Blood Pressure Mean: 116 Progress Progress Note #1: Time: 12:29 Progress Note Patient seen and evaluated, resting comfortably in the bed, no acute distress. Based on exam and symptoms, differential diagnosis includes arrhythmia, aortic dissection, ischemic/hemorrhagic stroke, TIA, vasovagal syncope, POTS, CHF, cardiac tamponade. Progress Note #2: Time: 13:57 Progress Note Chest x-ray showed possible pericardial effusion, echocardiogram ordered. Chest x-ray also showed cardiomegaly, BNP within normal limits. CBC grossly normal, RBCs slightly elevated 5.6. CMP reviewed, creatinine 1.35 which is less than previous, BUN 24, same as previous. Total cholesterol elevated 234, LDL 163, HDL 32. Troponin normal. Urine negative for infection or drugs. Patient and family updated on results so far. Progress Note #3: Time: 15:55 Progress Note Discussed echo result with radiation therapy technician, small amount of pericardial effusion. Follow-up appointment scheduled with [facility] cardiology for patient. Called for consult with neurology at [facility] in [place], they recommend inpatient for video EEG and potential MRI, but they have no beds and would not be able to accept new patients for 2 to 3 days. 1610 attempted to schedule an outpatient follow-up with neurology at [facility] in [place], they are not accepting any new patients, and they are booked 6 to 12 months out. 1613 called [facility], they not accepting transfers. 1614 called [facility], they have no beds available. 1615 called [facility], they have no beds available at facilities with neurology. 1616 called [facility], they have no beds available. Was able to get an appointment for patient with Dr. Guan who is associated with [facility] neurology, Dr. Guan will see patient at [facility]. Prescription for atorvastatin 40 mg sent to pharmacy for history of stroke and elevated cholesterol. Patient and family agreeable to this plan. Strict return precautions provided. Initial ECG Impression Date: Jun 16, 2022 Initial ECG Impression Time: 12:35 Initial ECG Rhythm: Normal Sinus Initial ECG Intervals: Normal Initial ECG Comparisson: Unchanged Diagnostic Imaging Diagonstic Imaging: Xray Plain Films/CT/US/NM/MRI: chest Comments [facility] [place], [place] NAME: GUERLINE LESLIE [facility] REC#: [id number] PT STATUS: REG ER : 1950 PHYSICIAN: ALLIE MONTOYA APRN ADMIT DATE: 06/16/22/ER Draft Date of Exam:06/16/22 CHEST 1 VIEW, AP/PA ONLY CLINICAL INDICATION: Patient with fainting spell at home around 0900 hours. EXAM: Portable chest x-ray, upright view. COMPARISON: None. FINDINGS: Lungs/pleura: Lungs are clear. There is no pneumothorax. There is no pleural effusion. Mediastinum: Unremarkable. Pulmonary vasculature: Unremarkable. Heart: There is cardiomegaly. There are postop changes to the chest consistent with CABG. Bones/extrathoracic soft tissue: Anterior cervical discectomy and fusion involving the lower cervical region is seen. IMPRESSION: 1: Cardiomegaly. Pericardial effusion may also be considered. 2: Otherwise, there is no radiographic evidence of acute cardiopulmonary process. Dictated on workstation # [id number] Dict: 06/16/22 1335 Trans: 06/16/22 1342 [id number] Interpreted by: JESSE EDGE MD Electronically signed by: Patel Imaging: CT Plain Films/CT/US/NM/MRI: c-spine, head Comments [facility] [place] NAME: GUERLINE LESLIE [facility] REC#: [id number] PT STATUS: REG ER : 1950 PHYSICIAN: ALLIE MONTOYA APRN ADMIT DATE: 06/16/22/ER Draft Date of Exam:06/16/22 CT HEAD/CERVICAL SPINE WO PROCEDURE: CT head and CT cervical spine without contrast. TECHNIQUE: Multiple contiguous axial images were obtained through the brain and cervical spine without the use of intravenous contrast. Sagittal and coronal reformations through the cervical spine were then performed. Auto Exposure Controls were utilized during the CT exam to meet ALARA standards for radiation dose reduction. INDICATION: Trauma. Fainting spell. Fall and struck head on warp scouring vat tender. Dizziness. COMPARISON: CT head and cervical spine without contrast 05/18/2022. FINDINGS: CT HEAD: Momf-qd-trjncsya generalized parenchymal volume loss and leukoaraiosis. Chronic infarct in the left frontal lobe is stable. No intracranial hemorrhage, mass effect, hydrocephalus, or extra-axial fluid collections. Visualized paranasal sinuses and mastoids are clear. Osseous structures are intact. CT CERVICAL SPINE: Normal alignment. Vertebral body heights are preserved. No fractures. Anterior fusion with interbody grafting at C6-C7. Hardware components are intact. No evidence of loosening. No high-grade spinal canal stenosis is evident. Moderate atherosclerotic calcifications in the carotid bifurcations. Visualized paravertebral soft tissues are unremarkable. IMPRESSION: No acute intracranial or cervical spine CT findings. Chronic findings as above. Dictated on workstation # [id number] Dict: 06/16/22 1334 Trans: 06/16/22 1344 [id number] Interpreted by: SHENA LARA MD Electronically signed by: Diagonstic Imaging: Ultrasound Plain Films/CT/US/NM/MRI: abdomen Comments [facility] [place], [place] NAME: GUERLINE LESLIE [facility] REC#: [id number] PT STATUS: REG ER : 1950 PHYSICIAN: ALLIE MONTOYA APRN ADMIT DATE: 06/16/22/ER Draft Date of Exam:06/16/22 AORTA SONO [id number] AORTA SONO [id number] INDICATION: Abdominal aortic aneurysm. COMPARISON: CT abdomen and pelvis of 09/15/2021. TECHNIQUE: Grayscale and color Doppler imaging of the aorta was performed. FINDINGS: Infrarenal abdominal aortic aneurysm is similar in size measuring approximately 4.6 cm in maximal diameter (previously 4.[address] Mid aorta measures 3.0 cm. Iliac arteries are widely patent. Aorta is patent by color Doppler imaging. IMPRESSION: Stable size of infrarenal abdominal aortic aneurysm measuring approximately 4.6 cm. Dictated on workstation # [id number] Dict: 06/16/22 1434 Trans: 06/16/22 1443 [id number] Interpreted by: KATY FOSTER MD Electronically signed by: Departure Impression Primary Impression: Syncope Disposition: 01 HOME, SELF-CARE Condition: Stable Departure-Patient Inst. Decision time for Depature: 16:47 Referrals: ОЛЬГА HERNANDEZ MD (PCP) Primary Care Physician NO,LOCAL PHYSICIAN (Family) Primary Care Physician Patient Instructions: Fainting, Adult ED Add. Discharge Instructions: Follow-up with Dr. Saqib Moreno cardiology on July 24 at 9 AM. [phone] Follow-up with Dr. Guan, neurologist, at [facility] on August 18 at 9:15 AM. [phone] (will be the orthopedic office, but Dr. Guan uses this location when he is seeing patients at [facility]. Return for recurrent episodes of syncope, unresponsiveness, increased confusion, seizurelike symptoms, or any other new, concerning, or worsening symptoms. All discharge instructions reviewed with patient and/or family. Voiced understanding. Scripts Atorvastatin Calcium (Atorvastatin Calcium) 40 Mg Tablet 40 MG PO DAILY for 30 Days, #30 TAB 0 Refills Prov: ALLIE MONTOYA APRN 06/17/22 ALLIE MONTYOA APRN Jun 16, 2022 12:49
[2022-06-16 13:09] LABS: BASOPHILS # (AUTO) 0.1 10^3/uL (0.0-0.1); BASOPHILS % (AUTO) 1 % (0-10); EOSINOPHILS # (AUTO) 0.2 10^3/uL (0.0-0.3); EOSINOPHILS % (AUTO) 2 % (0-10); HEMATOCRIT 45 % (40-54); HEMOGLOBIN 16.1 g/dL (13.3-17.7); LYMPHOCYTES # (AUTO) 2.3 10^3/uL (1.0-4.0); LYMPHOCYTES % (AUTO) 21 % (12-44); MEAN CORPUSCULAR HEMOGLOBIN 29 pg (25-34); MEAN CORPUSCULAR HGB CONC 36 g/dL (32-36); MEAN CORPUSCULAR VOLUME 81 fL (80-99); MEAN PLATELET VOLUME 10.2 fL (9.0-12.2); MONOCYTES # (AUTO) 0.6 10^3/uL (0.0-1.0); MONOCYTES % (AUTO) 5 % (0-12); NEUTROPHILS # (AUTO) 7.9 10^3/uL (1.8-7.8); NEUTROPHILS % (AUTO) 72 % (42-75); PLATELET COUNT 182 10^3/uL (130-400)
[2022-06-16 13:14] LABS: BILIRUBIN,URINE NEGATIVE (NEGATIVE); CLARITY,URINE CLEAR; COLOR,URINE YELLOW; GLUCOSE, URINE (UA) NEGATIVE (NEGATIVE); KETONES,URINE NEGATIVE (NEGATIVE); LEUKOCYTE ESTERASE ,URINE NEGATIVE (NEGATIVE); NITRITE,URINE NEGATIVE (NEGATIVE); PH,URINE 5.5 (5-9); PROTEIN,URINE NEGATIVE (NEGATIVE)
[2022-06-16 13:21] LABS: PROTHROMBIN TIME PATIENT 13.2 SEC (12.2-14.7)
[2022-06-16 13:21] LABS: WBC,URINE RARE /HPF
[2022-06-16 13:22] LABS: BACTERIA,URINE NEGATIVE /HPF; SQUAMOUS EPITHELIAL CELL,UR RARE /HPF
[2022-06-16 13:32] LABS: ALBUMIN 4.4 GM/DL (3.2-4.5); BILIRUBIN,TOTAL 0.9 MG/DL (0.1-1.0); CALCIUM 9.7 MG/DL (8.5-10.1); CREATININE SERUM 1.35 MG/DL (0.60-1.30); MAGNESIUM 2.1 MG/DL (1.6-2.4); POTASSIUM 4.4 MMOL/L (3.6-5.0); TOTAL PROTEIN 7.6 GM/DL (6.4-8.2)
[2022-06-16 13:37] LABS: AMPHETAMINE SCREEN, URINE NEGATIVE (NEGATIVE); BARBITURATE SCREEN URINE NEGATIVE (NEGATIVE); BENZODIAZEPINES SCREEN URINE NEGATIVE (NEGATIVE); CANNABINOID SCREEN, URINE NEGATIVE (NEGATIVE); COCAINE SCREEN URINE NEGATIVE (NEGATIVE); METHADONE STAT NEGATIVE (NEGATIVE); OPIATE SCREEN URINE NEGATIVE (NEGATIVE); OXYCODONE STAT NEGATIVE (NEGATIVE); PROPOXYPHENE STAT NEGATIVE (NEGATIVE); TRICYCLIC ANTIDEPRESSANTS SCRE NEGATIVE (NEGATIVE)
[2022-06-16 13:39] LABS: CREATINE KINASE MB 3.1 NG/ML (<6.6)
--- NOTE | 2022-06-16 13:42 | Diagnostic Imaging Report ---
CLINICAL INDICATION: Patient with fainting spell at home around 0900 hours. EXAM: Portable chest x-ray, upright view. COMPARISON: None. FINDINGS: Lungs/pleura: Lungs are clear. There is no pneumothorax. There is no pleural effusion. Mediastinum: Unremarkable. Pulmonary vasculature: Unremarkable. Heart: There is cardiomegaly. There are postop changes to the chest consistent with CABG. Bones/extrathoracic soft tissue: Anterior cervical discectomy and fusion involving the lower cervical region is seen. IMPRESSION: 1: Cardiomegaly. Pericardial effusion may also be considered. 2: Otherwise, there is no radiographic evidence of acute cardiopulmonary process. Dictated by: Dictated on workstation # [id number]
[2022-06-16 13:44] LABS: CHOLESTEROL 234 MG/DL (< 200); HDL CHOLESTEROL 52 MG/DL (40-60); TRIGLYCERIDES 139 MG/DL (<150); VLDL CHOLESTEROL 28 MG/DL (5-40)
--- NOTE | 2022-06-16 13:44 | Diagnostic Imaging Report ---
PROCEDURE: CT head and CT cervical spine without contrast. TECHNIQUE: Multiple contiguous axial images were obtained through the brain and cervical spine without the use of intravenous contrast. Sagittal and coronal reformations through the cervical spine were then performed. Auto Exposure Controls were utilized during the CT exam to meet ALARA standards for radiation dose reduction. INDICATION: Trauma. Fainting spell. 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 Dizziness. COMPARISON: CT head and cervical spine without contrast 05/18/2022. FINDINGS: CT HEAD: [id number] generalized parenchymal volume loss and leukoaraiosis. Chronic infarct in the left frontal lobe is stable. No intracranial hemorrhage, mass effect, hydrocephalus, or extra-axial fluid collections. Visualized paranasal sinuses and mastoids are clear. Osseous structures are intact. CT CERVICAL SPINE: Normal alignment. Vertebral body heights are preserved. No fractures. Anterior fusion with interbody grafting at C6-C7. Hardware components are intact. No evidence of loosening. No high-grade spinal canal stenosis is evident. Moderate atherosclerotic calcifications in the carotid bifurcations. Visualized paravertebral soft tissues are unremarkable. IMPRESSION: No acute intracranial or cervical spine CT findings. Chronic findings as above. Dictated by: Dictated on workstation # [id number]
[2022-06-16 13:47] VITALS: BP_SYST 108; BP_SYST 129; BP_SYST 130; BP_DIAS 73; BP_DIAS 79; BP_DIAS 85
--- NOTE | 2022-06-16 14:44 | Diagnostic Imaging Report ---
AORTA SONO [id number] INDICATION: Abdominal aortic aneurysm. COMPARISON: CT abdomen and pelvis of 09/15/2021. TECHNIQUE: Grayscale and color Doppler imaging of the aorta was performed. FINDINGS: Infrarenal abdominal aortic aneurysm is similar in size measuring approximately 4.6 cm in maximal diameter (previously 4.[address] Mid aorta measures 3.0 cm. Iliac arteries are widely patent. Aorta is patent by color Doppler imaging. IMPRESSION: Stable size of infrarenal abdominal aortic aneurysm measuring approximately 4.6 cm. Dictated by: Dictated on workstation # [id number]
[2022-06-16 17:00] VITALS: BP 139/90
[2022-06-17] MEDS ORDERED: ATOR40TA70 PO (13:48)
== END 2022-06-16 17:02 | disposition home or self-care (01) ==
LOC: EDUNIT# 11:49 → ER 11:52
DX: R55 Syncope and collapse (principal); Z87.891 Personal history of nicotine dependence; Z28.311 Partially vaccinated for COVID-19; Z79.82 Long term (current) use of aspirin
CPT/HCPCS: 36415; 70450; 71045; 72125; 76775; 80053; 80061; 80306; 81000; 82550; 82553; 83735; 83874; 83880; 84484; 85025; 85610; 85730; 93005; 93041; 93308